=== PATIENT | female | born 1955 | race African-American/Black ===

== ENCOUNTER 2023-05-21 11:35 | Outpatient (CLI) | payer MEDICARE, BC, SELFPAY ==
[2023-05-21 13:26] LABS: Basophils Percent Auto 0.3 % (0.2-1.2); Eosinophils Absolute Auto 0.1 K/mm3 (0-0.3); Eosinophils Percent Auto 1.8 % (0-4.4); Hematocrit 38.5 % (37.0-47.0); Hemoglobin 11.7 g/dL (12.0-15.0); Lymphocytes Absolute Auto 2.41 K/mm3 (0.9-3.2); Lymphocytes Percent Auto 40.5 % (18.3-44.2); Mean Corpuscular HGB Conc 30.4 g/dl (32-36); Mean Corpuscular Volume 75.8 fl (80-100); Monocytes Absolute Auto 0.4 K/mm3 (0.1-0.6); Monocytes Percent Auto 5.9 % (2.6-8.5); Neutrophils Absolute Auto 3.1 K/mm3 (1.3-6.7); Neutrophils Percent Auto 51.5 % (45.5-73.1); Platelet Count Result 222 k/mm3 (150-375); Red Blood Count 5.08 M/mm3 (4.2-5.4); Red Cell Distribution Width 16.1 % (11.5-14.5)
[2023-05-21 13:36] LABS: Urine Cotinine NEGATIVE
== END 2023-05-21 11:36 | disposition home or self-care (01) ==
PROVIDERS: PCP Internal Medicine; Visit Provider Orthopaedic Surgery
DX: M17.12 Unilateral primary osteoarthritis, left knee (principal); Z01.818 Encounter for other preprocedural examination
CPT/HCPCS: 80307; 85025; 87081

== ENCOUNTER 2023-05-30 09:06 | Outpatient (CLI) | payer MEDICARE, BC, SELFPAY ==
--- NOTE | 2023-05-30 09:22 | ECG_ITS ---
Measurements Intervals [place] Rate: 36 P: 29 NV: 211 QRS: 2 QRSD: 87 T: 16 QT: 362 QTc: 282 Interpretive Statements SINUS BRADYCARDIA WITH FIRST DEGREE AV BLOCK POSSIBLE LEFT ATRIAL ENLARGEMENT [-0.1mV P WAVE IN V1/V2] LOW QRS VOLTAGE IN PRECORDIAL LEADS [QRS DEFLECTION < 1.0 mV IN CHEST LEADS] Poor R-wave progression WARNING: DATA QUALITY MAY AFFECT INTERPRETATION NO PREVIOUS ECG AVAILABLE FOR COMPARISON Electronically Signed On 05-30-2023 19:32:56 CDT by Marylu Dinh M.D.
== END 2023-05-30 09:07 | disposition home or self-care (01) ==
PROVIDERS: PCP Internal Medicine; Visit Provider Orthopaedic Surgery
DX: I10 Essential (primary) hypertension (principal); Z01.818 Encounter for other preprocedural examination; I44.0 Atrioventricular block, first degree
CPT/HCPCS: 93005

== ENCOUNTER 2023-06-04 01:42 | Day surgery (SDC) | payer MEDICARE, BC, SELFPAY ==
[2023-05-21 12:02] VITALS: BMI 30.4
--- NOTE | 2023-05-21 12:39 | PC.NURSE ---
Addendum entered by Marifer Castillo RN 05/21/23 12:45: TOTAL JOINT CLASS 05/30/23 AT 10 AM Original Note: Report to the Outpatient Waiting Room, entrance under the [place] [facility] located off [facility], at time 1000 on date _06/04/23 . Planned Procedure Time: __1200 . Time changes happen often and if your time is changed the preop area will call you the afternoon before. - You and your visitor will be asked to self-screen and do not enter if you have any COVID symptoms. - A mask is optional within the hospital at this time. Patients may have clear liquids (water, carbonated beverages, clear teas, apple juice) until 3 hours prior to surgery with a maximum of 20 ounces. - No food from midnight until time of surgery - Infants may have breast milk until 4 hours before surgery, infant formula 6 hours prior to surgery. - Children will be allowed to drink immediately following surgery. If applicable, please bring a bottle or sippy cup to assist with drinking. Juice, water, soda, and popsicles are readily available. For infants on formula, please bring formula the day of surgery. Pacifiers are allowed. Take the following medications with a SIP of water the morning of surgery: __AMLODIPINE DO NOT STOP ANY OF YOUR OTHER PRESCRIPTION MEDICATIONS PRIOR TO SURGERY ?EXCEPT THE FOLLOWING Medications to discontinue per physician ____ALL VITAMINS/SUPPLEMENTS 3 DAYS PRE OP.LAST DOSE 05/31/23___ASPIRIN PER DR REID Please no make-up, nail english, hairspray, perfume, deodorant, or body powder the day of surgery. No jewelry (including any body piercings) or valuables the day of surgery, leave them at home. Please take a shower or bath the night before, or the morning of, surgery with an antibacterial soap. Wear comfortable, loose fitting clothing. Children are encouraged to wear pajamas. - Jewelry must be removed prior to entering the operating room. Rings and piercings that are not removed may be cut off. - The hospital will not accept responsibility for valuables. - Please leave all valuables, including medications, at home the day of surgery. If you are going home after surgery, a licensed bus driver/monitor must drive you home. - NO public transportation without another adult if you receive anesthesia. - We recommend that an adult stay with you for 24 hours following discharge. - We also recommend that you do not drive, make important decision, drink alcoholic beverages, or take any drugs that were not prescribed by your health care provider for at least 24 hours after your discharge time. For Pediatric surgeries, we recommend two adults accompany the child home. Follow any additional instructions given to you from your surgeon. If you or anyone in your household have experienced Covid symptoms in the past week, please notify your surgeon or the nurse liaison at the phone number below for possible testing. VERBAL AND WRITTEN instructions given to _PATIENT and asked if any additional questions and then verbalized understanding. Patient advised to call surgeon office or pre surgery nurse liaison [phone] if any additional questions.
[2023-05-21 13:01] VITALS: BP 127/78; PULSE 62; RESP 18; TEMP 36.6; O2SAT 99
--- NOTE | 2023-06-01 13:57 | PM.IMHP ---
H&P: HPI History of Present Illness Date/Time: 06/01/23 13:57 Chief Complaint: The patient is a 68-year-old female who presents with left knee pain. The patient has advanced primary osteoarthritis left knee joint noted on x-ray and exam. She has rhnd-zp-lyuj changes despite conservative measures including cortisone hyaluronic acid therapy and anti-inflammatories her symptoms continue. She notes grinding crepitation aching pain worse with activity somewhat relieved by rest. She cannot stand or walk for long periods has trouble squatting kneeling going up and down stairs. Despite conservative measures symptoms continue. The patient at this point has discussed further treatment options in detail with Dr. Hancock she would now like to proceed with left total knee arthroplasty. Review of Systems Review of Systems: Ten point review of systems otherwise negative ON LICENSE OF [facility] Social History Social History Years smoked: 30 Smoking status: Former smoker Tobacco type: cigarettes Smoking end date: 10/29/02 Additional smoking assessment comments: DENIES ANY FORM OF TOBACCO USE Alcohol intake: current Alcohol use details: ONE DRINK PER MONTH Living arrangements: with family Spiritual care concerns: No Meds Home Medications and Allergies Home Medications Medication Instructions Recorded Confirmed Type acetaminophen 500 mg capsule 500 mg PO QID PRN Pain 05/21/23 05/21/23 History amlodipine 2.5 mg tablet 2.5 mg PO DAILY 05/21/23 05/21/23 History aspirin 81 mg tablet,delayed 81 mg PO DAILY 05/21/23 05/21/23 History release (Adult Low Dose Aspirin) atorvastatin 20 mg tablet 20 mg PO HS 05/21/23 05/21/23 History calcium carbonate 600 mg-vitamin 1 cap PO DAILY 05/21/23 05/21/23 History D3 5 mcg (200 unit) capsule (Calcium 600 + D(3)) clobetasol 0.05 % topical cream 0.05 applic topical PRN PRN Dry 05/21/23 05/21/23 History Skin fluticasone propionate 50 1 spray intranasal PRN PRN 05/21/23 05/21/23 History mcg/actuation nasal Congestion spray,suspension glucosamine sulf dipot 1 cap PO DAILY 05/21/23 05/21/23 History chlr,msm,chond 550 mg-C 30 mg-cris 1 mg capsule (Glucosamine Chondroitin) lisinopril 20 mg tablet 20 mg PO DAILY 05/21/23 05/21/23 History metformin 500 mg tablet 500 mg PO BID 05/21/23 05/21/23 History multivitamin 1 tablet PO DAILY 05/21/23 05/21/23 History nystatin 100,000 unit/gram topical 100,000 unit topical BID 05/21/23 05/21/23 History cream omega-3 fatty acids 1,000 mg PO DAILY 05/21/23 05/21/23 History vitamins A,C,G-ufxc-pqixcb 2,148 1 tablet PO DAILY 05/21/23 05/21/23 History mcg-113 mg-45 mg-17.4 mg tablet (PreserVision AREDS) zinc 50 mg tablet 50 mg PO DAILY 05/21/23 05/21/23 History Allergies Allergy/AdvReac Type Severity Reaction Status Date / Time No Known Allergies Allergy Verified 05/21/23 12:06 Exam Narrative: on exam the patient is noted be well-developed well-nourished female no acute distress alert oriented x3. Normal mood and affect. 5 ft 4 in tall 180 lb with BMI 30.9. Hearing and vision are intact. Respiratory is good no distress. Pulse regular rate and rhythm. Abdomen benign. Extremities show the patient's left knee to be painful with manipulation and range of motion. The patient has motion from about 3-110 degrees with mild varus deformity tenderness on the medial joint line crepitation through the arc of motion. No significant effusion or swelling is noted no erythema heat or other signs of infection. Neurovascularly she is intact skin is intact strength is 5 5. Central nervous system within normal limits. Walks an antalgic gait because of bilateral knee issues. Assessment and Plan Assessment and plan (1) Primary osteoarthritis of left knee: Code(s): M17.12 - Unilateral primary osteoarthritis, left knee Status: Acute Plan by x-ray and exam t
[2023-06-04] VITALS (10 sets, daily range): BP systolic 136–151; BP diastolic 59–75; PULSE 65–85; RESP 12–21; TEMP 36.6–36.8; O2SAT 97–100
--- NOTE | ~2023-06-04 | XR_ITS ---
EXAMINATION: [id number] DATE: 06/04/2023 15:44 INDICATION: Postoperative evaluation following left total knee arthroplasty. TECHNIQUE: Anteroposterior and lateral views of the left knee were obtained. COMPARISON: None. FINDINGS: Left total knee arthroplasty with patellar resurfacing appears well seated and in near anatomic align ment. No fractures identified. Anterior skin juan and expected postoperative subcutaneous and int ra-articular gas. IMPRESSION: 1. Left total knee arthroplasty, negative for postoperative purposes. Reviewed, dictated and finalized at location B.
[2023-06-04] MEDS: ACETAMINOPHEN 500 MG TABLET 1000 MG PO (10:33)
[2023-06-04] MEDS: VANCOMYCIN 1,250 MG/NS 250 ML 1,250 MG/250 ML BAG 166.67 MG IVPB (10:50)
[2023-06-04] MEDS: LACTATED RINGERS 1,000 ML 30 ML IV CONT ×2 (10:50→15:35)
[2023-06-04 11:05] LABS: Glucose Point of Care 92 mg/dl (65-105)
[2023-06-04] MEDS: TRANEXAMIC ACID 1,000MG/ISO100 1,000 MG/100 ML BAG 200 MG IVPB (11:33)
--- NOTE | 2023-06-04 11:53 | WPDHPUPDATE1 ---
History and Physical Update Update Date/Time: 06/04/23 11:53 History and Physical has been reviewed, including an updated exam of the patient. There are NO changes in the patient's condition. Risks, benefits, and alternatives have been discussed and questions answered. Patient agrees to proceed with procedure.
--- NOTE | 2023-06-04 13:00 | WPDANESEPPF ---
Anes - Initial Pre Proc Eval Procedure: Operation Date: 06/04/23 12:00 Proposed Procedures p Left Total Knee Arthroplasty - Johny Hancock MD Date/Time: 06/04/23 13:00 Surgeon: Johny Hancock MD Pre Op Diagnosis: oa left knee Patient Data Age: 68 Gender: F Height: 1.63 m Weight: 80.5 kg Last Vital Signs Temp 97.9 F 06/04/23 10:37 Pulse 65 06/04/23 10:37 Resp 16 06/04/23 10:37 BP 150/75 H 06/04/23 10:37 Pulse Ox 100 06/04/23 10:37 O2 Del Method Room Air 05/21/23 13:01 Allergies Allergy/AdvReac Type Severity Reaction Status Date / Time No Known Allergies Allergy Verified 05/21/23 12:06 Home Medications Medication Instructions Recorded Confirmed Type acetaminophen 500 mg capsule 500 mg PO QID PRN Pain 05/21/23 06/04/23 History amlodipine 2.5 mg tablet 2.5 mg PO DAILY 05/21/23 06/04/23 History aspirin 81 mg tablet,delayed 81 mg PO DAILY 05/21/23 06/04/23 History release (Adult Low Dose Aspirin) atorvastatin 20 mg tablet 20 mg PO HS 05/21/23 06/04/23 History calcium carbonate 600 mg-vitamin 1 cap PO DAILY 05/21/23 06/04/23 History D3 5 mcg (200 unit) capsule (Calcium 600 + D(3)) clobetasol 0.05 % topical cream 0.05 applic topical PRN PRN Dry 05/21/23 06/04/23 History Skin fluticasone propionate 50 1 spray intranasal PRN PRN 05/21/23 06/04/23 History mcg/actuation nasal Congestion spray,suspension glucosamine sulf dipot 1 cap PO DAILY 05/21/23 06/04/23 History chlr,msm,chond 550 mg-C 30 mg-cris 1 mg capsule (Glucosamine Chondroitin) lisinopril 20 mg tablet 20 mg PO DAILY 05/21/23 06/04/23 History metformin 500 mg tablet 500 mg PO BID 05/21/23 06/04/23 History multivitamin 1 tablet PO DAILY 05/21/23 06/04/23 History nystatin 100,000 unit/gram topical 100,000 unit topical BID 05/21/23 06/04/23 History cream omega-3 fatty acids 1,000 mg PO DAILY 05/21/23 06/04/23 History vitamins A,C,E-rdii-bgjtfi 2,148 1 tablet PO DAILY 05/21/23 06/04/23 History mcg-113 mg-45 mg-17.4 mg tablet (PreserVision AREDS) zinc 50 mg tablet 50 mg PO DAILY 05/21/23 06/04/23 History Laboratory Tests 06/04/23 06/04/23 10:58 11:03 POC Capillary Glucose 92 mg/dl (65-105) Blood Type O Positive Antibody Screen Negative Patient hx anesthesia problems: post op nausea/vomiting Family hx anesthesia problems: none Results Review: All pre-operative results and documents have been reviewed as part of the pre-operative evaluation. [facility] Social History Social History Years smoked: 30 Smoking status: Former smoker Tobacco type: cigarettes Smoking end date: 10/29/02 Additional smoking assessment comments: DENIES ANY FORM OF TOBACCO USE Alcohol intake: current Alcohol use details: ONE DRINK PER MONTH Living arrangements: with family Spiritual care concerns: No Anes - Eval Final PreProcedure Day of Procedure 06/04/23 13:00 Patient weight: obese Heart: regular rate and rhythm Lungs: clear to auscultation Airway: Mallampati scale class II Neurological: alert and oriented Last oral intake: >/= 8 hours ASA classification: III Emergent: no Anesthetic plan: proceed Anesthesia type and monitoring: general LMA and standard monitoring Results Review: All pre-operative results and documents have been reviewed as part of the pre-operative evaluation. Informed Consent: The patient's anesthetic plan and its attendant risks and benefits were discussed with the patient/family/POA. Questions were solicited and answers provided to the satisfaction of the patient/family/POA.
[2023-06-04] MEDS: SCOPOLAMINE 1.5 MG PATCH TRANSDERM (13:07)
[2023-06-04] MEDS: ceFAZolin 2 GM/D5W 50 ML 2 GM/50 ML BAG IVPB (13:33)
[2023-06-04] MEDS: GENTAMICIN BONE CEMENT REFOBACIN 1 EACH TOPICAL (14:52)
--- NOTE | 2023-06-04 15:00 | W.PM.PROC2 ---
Procedure Note - Detailed Date of Procedure 06/04/23 Pre-op Diagnosis Osteoarthritis left knee Post-op Diagnosis Same Procedure Performed LEFT total knee arthroplasty Surgeon Johny Hancock MD Director Of Manufacturing Operations Ermias Raines Anesthesia General Description of Procedure The patient was brought to the operating room. General anesthetic was administered. Placed on the operating table and sterilely prepped and draped in usual manner. A longitudinal incision was made. Tourniquet inflated to 300 mmHg for a total of 52 minutes. Dissection carried down to the fascia. Medial parapatellar incision was made and the patella subluxated laterally. Patella cut from 25 to 15 mm and sized for a 34 mm button. The tibia cut perpendicular to the long axis and femur cut in 5 degrees of valgus, a [65] femur trialed. This was too large and the femusr rectu to 62.5 mm[67] tibia was felt to fit the best. The soft tissue balanced, hemostasis obtained. All [address], [67] tibia, 62.5 femur, 34 mm patella, and 10 mm poly. Motion was 0-125 degrees with good stablility in both flexion and extension. The wound was closed with #2 vicryl, 2-0 Vicryl and juan. Implants [employer] Estimated Blood Loss 200 Drains No Packing No Pathology None sent Complications No immediate complications Condition Stable Disposition PACU
[2023-06-04] MEDS: fentaNYL CITRATE INJ (*CRX) 100 MCG/2 ML VIAL 25 MCG IV PUSH ×8 (15:45→16:35)
[2023-06-04 15:46] LABS: Glucose Point of Care 107 mg/dl (65-105)
--- NOTE | 2023-06-04 15:46 | PM.OP ---
Procedure Note - Brief Procedure Note - Brief Date of procedure: 06/04/23 Preop diagnosis severe primary osteoarthritis left knee Postop diagnosis severe primary osteoarthritis left knee status post left total knee arthroplasty Procedure performed: Left total knee arthroplasty Surgeon: Surgeon Johny Hancock MD 1st esol teacher assistant Ermias Raines PA-C Description of procedure: Patient was taken the operating room June 04, 2023. I entered the room at 1:35 p.m.. At that point I assisted with transfer the patient onto the operating table and placement of a well-padded tourniquet on the upper thigh once anesthesia was instituted. I then assisted with a sterile prep and drape of the left lower extremity. Dr. Hancock entered room and commenced with the left total knee arthroplasty throughout the procedure I assisted with positioning of the leg, wound retraction, hemostasis with suction cautery, placement of the total knee implant and excess cement removal once the cement was hardened. Once Dr. Hancock completed his portion of the procedure I then irrigated the wound thoroughly from deep to superficial, also cauterized any remaining bleeders once the tourniquet was down. Then placed Surgicel powder throughout the wound and started with closure of the deep capsule of the left knee joint using 2. Vicryl and 2. Quill. I irrigated the wound once again placed more Surgicel powder and made sure final hemostasis was obtained with cauterization I then closed the skin layer with 2-0 Vicryl, 0 Quill and surgical skin juan. I then placed a sterile dressing with Xeroform gauze, 4 x 4 gauze, soft roll gauze, a long Davey wrap from the toes to the thigh as well. Patient tolerated the procedure well without intraoperative complications was stable for discharge to recovery room in good condition. Total blood loss was approximately 200 cc. The patient was expected to spend the night for observation and pain control and be discharged tomorrow if in good condition. I exited the room at 3:35 p.m..
--- NOTE | 2023-06-04 17:03 | ADMGEN ---
This patient, Nova Trinidad, was admitted to Medical Room 251-01. Patient/family oriented to hospital policies and general routines including ID bracelet, bed and alarms, visiting hours, pain management, procedures, bathroom and other care routines, personal items, smoking policy, room service/diet, and visiting hours. Information on how to activate the Rapid Response Team has been discussed. Patient/Family are encouraged to report perceived risks to care and to ask questions if they do not understand what they are told or what they should do.
[2023-06-04] MEDS: HYDROcodone/acetaminophen (*CRX) 7.5-325 MG TABLET 1 TAB PO ×2 (17:38→23:20)
--- NOTE | 2023-06-04 19:33 | PM.IMCN ---
Assessment and Plan Assessment and plan (1) S/P total knee arthroplasty: Code(s): Z96.659 - Presence of unspecified artificial knee joint Status: Acute Assessment and Plan: Postop care per Ortho. DVT prophylaxis per Ortho. PT OT per ortho. The patient is on a daily aspirin and Xarelto. Pain management per Ortho. (2) Hyperlipidemia: Code(s): E78.5 - Hyperlipidemia, unspecified Status: Acute Assessment and Plan: Resume atorvastatin (3) Obesity: Code(s): E66.9 - Obesity, unspecified Status: Acute Assessment and Plan: The patient stated that she is not diabetic and she was given metformin to lose weight. I would check her A1c anyway. (4) Hypertension: Code(s): I10 - Essential (primary) hypertension Status: Acute Assessment and Plan: Her amlodipine was resumed as well as her lisinopril. Please watch her renal function. Plan I thank you for allowing us to consult on this patient. We will continue to comanage the patient along side you. If you have any questions or concerns please feel free [facility]. HPI Data of Consult Consult date: 06/04/23 Requesting Physician: Johny Hancock MD Primary Care Provider: Chance AyalaMD Consult Narrative Narrative: Nova Trinidad is a 68 year old female who has been complaining of left knee pain she had advanced primary osteoarthritis to left joint on x-ray and exam. ( The patient previously had her right knee replaced at an outside facility of which still continues to cause her some pain.) Her left knee is bone on bone changes despite conservative measures. She has had cortisone injections and has taken anti-inflammatories. She notes grinding and crepitation and that her left knee a achy pain was worse. It was somewhat relieved with rest. Despite conservative measures her symptoms for main. The patient underwent a left total knee arthroplasty today. The patient has stated that she thought she had a nerve block however the patient is complaining of pain that is a 7 or 8 at this time. She stated it had been several hours since she had pain medication. She has no numbness or tingling to her left leg at all. Patient has full movement of her toes and her foot without any numbness. See operative note for left total knee arthroplasty per Dr. Hancock from today. Estimated blood loss 200. No immediate complications were noted according to the surgical notes. The hospitalist group was consulted for medical management on the date of service of 06/04/2023. Review of Systems Review of Systems: All systems reviewed & are unremarkable except as noted in HPI and below Constitutional: Constitutional: Reports as per HPI and Reports no additional constitutional complaints Eyes: Eyes: Reports as per HPI and Reports no additional eye complaints ENT: Reports system reviewed and no additional complaints, except as documented and Reports Normal hearing present Cardiovascular: Cardiovascular: Reports no additional cardiovascular complaints Respiratory: Respiratory: Reports no additional respiratory complaints and Reports no additional respiratory complaints Gastrointestinal: Gastrointestinal: Reports as per HPI and Reports no additional gastrointestinal complaints Musculoskeletal: Musculoskeletal: Reports no additional musculoskeletal complaints Integumentary/Breasts: Skin/Breast: Reports system reviewed and no additional complaints, except as docu and Reports as per HPI Neurologic: Reports system reviewed and no additional complaints, except as documented, Reports as per HPI and Reports Normal hearing present Psychiatric: Psychiatric: Reports no additional psychiatric complaints and Reports as per HPI Endocrine: Endocrine: Reports no additional endocrine complaints Hematologic/Lymphatic: Hematologic/Lymphatic: Reports no additional hemato
[2023-06-04] MEDS: ceFAZolin 1 GM/NS 50 ML 1 GM/50 ML BAG IVPB (20:10)
[2023-06-04] MEDS: ATORVASTATIN 20 MG TABLET PO (20:10)
[2023-06-04] MEDS: traMADol HCL (*CRX) 50 MG TABLET PO (20:10)
[2023-06-04] MEDS: FAMOTIDINE 20 MG TABLET PO (20:10)
[2023-06-04] MEDS: RIVAROXABAN 10 MG TABLET PO (20:11)
[2023-06-05] MEDS: traMADol HCL (*CRX) 50 MG TABLET PO ×2 (02:15→09:02)
[2023-06-05 03:00] VITALS: PULSE 71; RESP 20; O2SAT 98
[2023-06-05 03:12] VITALS: BP 139/68; PULSE 71; RESP 20; TEMP 36.6; O2SAT 98
[2023-06-05] MEDS: ceFAZolin 1 GM/NS 50 ML 1 GM/50 ML BAG IVPB (04:49)
[2023-06-05] MEDS: HYDROcodone/acetaminophen (*CRX) 7.5-325 MG TABLET 1 TAB PO (05:22)
[2023-06-05 05:46] LABS: Basophils Percent Auto 0.2 % (0.2-1.2); Eosinophils Percent Auto 0.1 % (0-4.4); Hematocrit 31.6 % (37.0-47.0); Hemoglobin 9.7 g/dL (12.0-15.0); Immature Granulocyte Absolute 0.04 K/mm3 (0.00-0.031); Immature Granulocyte Percent A 0.4 % (0-0.5); Lymphocytes Absolute Auto 1.33 K/mm3 (0.9-3.2); Lymphocytes Percent Auto 14.1 % (18.3-44.2); Mean Corpuscular HGB Conc 30.7 g/dl (32-36); Mean Corpuscular Hemoglobin 23.2 pg (26-34); Mean Corpuscular Volume 75.4 fl (80-100); Mean Platelet Volume 10.4 fl (7.4-10.4); Monocytes Absolute Auto 0.5 K/mm3 (0.1-0.6); Monocytes Percent Auto 5.3 % (2.6-8.5); Neutrophils Absolute Auto 7.5 K/mm3 (1.3-6.7); Neutrophils Percent Auto 79.9 % (45.5-73.1); Platelet Count Result 173 k/mm3 (150-375); Red Blood Count 4.19 M/mm3 (4.2-5.4); Red Cell Distribution Width 15.6 % (11.5-14.5); White Blood Count 9.4 K/mm3 (4.5-10.0)
[2023-06-05 05:58] LABS: Anion Gap 7 mmol/L (8-16); Blood Urea Nitrogen 12 mg/dL (7-17); Calcium 8.6 mg/dL (8.4-10.2); Carbon Dioxide 27 mmol/L (22-30); Chloride 98 mmol/L (98-107); Estimated CRCL calculation 76 ml/min; Estimated Glomerular Filt Rate > 60; Glucose 141 mg/dL (65-110); Sodium 132 mmol/L (137-145)
[2023-06-05 06:05] LABS: Hemoglobin A1C 6.2 % (<5.7)
[2023-06-05 07:35] VITALS: BP 138/60; PULSE 66; RESP 20; TEMP 36.7; O2SAT 98
[2023-06-05 09:00] VITALS: BP 125/67; PULSE 69; O2SAT 100
[2023-06-05] MEDS: lisinopriL 20 MG TABLET PO (09:01)
[2023-06-05] MEDS: ASPIRIN 81 MG ENTERIC TABLET PO (09:02)
[2023-06-05] MEDS: CELECOXIB 200 MG CAPSULE PO (09:03)
[2023-06-05] MEDS: FAMOTIDINE 20 MG TABLET PO (09:03)
[2023-06-05] MEDS: SENNA/DOCUSATE SODIUM TABLET 2 TAB PO (09:03)
[2023-06-05] MEDS: metFORMIN HCL 500 MG TABLET PO (09:03)
[2023-06-05] MEDS: amLODIPine BESYLATE 2.5 MG TABLET PO (09:04)
[2023-06-05] MEDS: polyethylene glycoL 3350 17 GM POWD.PACK PO (09:05)
--- NOTE | 2023-06-05 09:10 | WPDANESPN ---
Anes - Prog Note Post-Op Date/Time: 06/05/23 09:10 Cardiovascular status: normal Respiratory status: normal Airway patency: baseline Mental status: baseline Post-Op hydration status: normal Vital Signs: Last Vital Signs Temp 36.7 C 06/05/23 07:35 Pulse 69 06/05/23 09:00 Resp 20 06/05/23 07:35 BP 125/67 06/05/23 09:00 Pulse Ox 100 06/05/23 09:00 O2 Del Method Room Air 06/05/23 03:00 O2 Flow Rate 2 06/04/23 16:35 Pain Score (VAS): 0 I/O: Intake & Output 06/04/23 06/05/23 06/05/23 23:59 07:59 15:59 Intake Total 1050 50 Output Total 750 300 Balance 300 -250 Laboratory Tests 06/05/23 05:35 06/05/23 05:35 06/04/23 06/04/23 06/04/23 10:58 11:03 15:45 WBC RBC Hgb Hct MCV MCH MCHC RDW Plt Count MPV Immature Gran % (Auto) Neut % (Auto) Lymph % (Auto) [place] % (Auto) Eos % (Auto) Baso % (Auto) Lymph # (Auto) [place] # (Auto) Eos # (Auto) Baso # (Auto) Abs Immat Gran (auto) Absolute Neuts (auto) Absolute Nucleated RBC Nucleated RBC % Sodium Potassium Chloride Carbon Dioxide Anion Gap BUN Creatinine Estim Creat Clear Calc Estimated GFR Glucose POC Capillary Glucose 92 107 H Hemoglobin A1c Calcium Blood Type O Positive Antibody Screen Negative 06/05/23 05:35 WBC 9.4 RBC 4.19 L Hgb 9.7 L Hct 31.6 L MCV 75.4 L MCH 23.2 L MCHC 30.7 L RDW 15.6 H Plt Count 173 MPV 10.4 Immature Gran % (Auto) 0.4 Neut % (Auto) 79.9 H Lymph % (Auto) 14.1 L [place] % (Auto) 5.3 Eos % (Auto) 0.1 Baso % (Auto) 0.2 Lymph # (Auto) 1.33 [place] # (Auto) 0.5 Eos # (Auto) 0.0 Baso # (Auto) 0.0 Abs Immat Gran (auto) 0.04 H Absolute Neuts (auto) 7.5 H Absolute Nucleated RBC 0.0 Nucleated RBC % 0.0 Sodium 132 L Potassium 4.0 Chloride 98 Carbon Dioxide 27 Anion Gap 7 L BUN 12 Creatinine 0.60 L Estim Creat Clear Calc 76 Estimated GFR > 60 Glucose 141 H POC Capillary Glucose Hemoglobin A1c 6.2 H Calcium 8.6 Blood Type Antibody Screen Post-procedural complaints: none Patient Feedback: Patient satisfied with anesthetic care.
[2023-06-05 11:05] VITALS: BP 113/57; PULSE 60; RESP 14; TEMP 36.6; O2SAT 99
--- NOTE | 2023-06-05 11:13 | PM.DS ---
DS: Admitting Diagnosis Discharge Date June 05, 2023 Admitting Diagnosis Admitting diagnosis- advanced primary osteoarthritis left knee joint Discharge diagnosis- same, status post left arthroplasty DS: Summary Hospital Course Hospital Course: Patient was admitted overnight June 04, 2023 status post left total arthroplasty. Postop day 1 the patient doing well some pain control issues noted the patient medications were adjusted she otherwise was doing well in physical therapy. She was ambulating independently vital signs are stable she is afebrile neurovascular she is intact wound is clean and dry calves are benign. She is alert oriented x3. Normal mood and affect. Tolerating p.o. well. She was deemed stable for discharge to home with the following discharge instructions. Outpatient physical therapy was to be started this week for total knee protocol. The patient would keep the wound clean and dry change dressing daily if necessary watch for evidence of drainage or infection. She will follow-up at 2 weeks postop for staple removal and wound recheck. She is to be discharged with Delta 7.5 mg every 6 hours p.r.n. severe pain and Xarelto 10 mg daily for total postop course of 2 weeks when this is complete she will go to aspirin 325 mg b.i.d. x1 month. If her insurance will not cover Xarelto we will do aspirin 325 mg b.i.d. x1 month. She voiced understanding. The patient will be weight-bearing as tolerated left lower extremity with a walker. The patient is instructed to call the office immediately at [phone] for any problems difficulties or questions. She will resume her home medications. General diet as tolerated. Discharged home in stable condition. the patient voiced understanding and agrees with above plan. Time Spent with Patient Time attestation: Total time spent providing and/or coordinating discharge services: Exam Narrative: Vital signs stable afebrile neurovascularly intact wound clean and dry calves benign. Alert oriented x3. Normal mood and affect. Tolerating p.o. well. Tolerating physical therapy well. Ambulated independently with a walker in physical therapy today. DS: Data Data Completed and Pending Labs on day of discharge: Labs from last 24 hours 06/05/23 06/04/23 06/04/23 05:35 15:45 10:58 WBC 9.4 RBC 4.19 L Hgb 9.7 L Hct 31.6 L MCV 75.4 L MCH 23.2 L MCHC 30.7 L RDW 15.6 H Plt Count 173 MPV 10.4 Immature Gran % (Auto) 0.4 Neut % (Auto) 79.9 H Lymph % (Auto) 14.1 L [place] % (Auto) 5.3 Eos % (Auto) 0.1 Baso % (Auto) 0.2 Lymph # (Auto) 1.33 [place] # (Auto) 0.5 Eos # (Auto) 0.0 Baso # (Auto) 0.0 Abs Immat Gran (auto) 0.04 H Absolute Neuts (auto) 7.5 H Absolute Nucleated RBC 0.0 Nucleated RBC % 0.0 Sodium 132 L Potassium 4.0 Chloride 98 Carbon Dioxide 27 Anion Gap 7 L BUN 12 Creatinine 0.60 L Estim Creat Clear Calc 76 Estimated GFR > 60 Glucose 141 H POC Capillary Glucose 107 H Hemoglobin A1c 6.2 H Calcium 8.6 Blood Type O Positive Antibody Screen Negative Procedures/Treatments: Left total knee arthroplasty Discharge Plan Discharge Patient Disposition: Home, Self-Care Discharge Instructions: Johny Hancock M.D [facility], [place] [phone] POST-OPERATIVE DISCHARGE INSTRUCTIONS TOTAL KNEE ARTHROPLASTY 1. When resting, lie on back with leg elevated above hear to minimize swelling. Significant swelling could indicate a blood clot and if this occurs call the office (or go to the ER) to have a venous ultrasound. 2. Do exercise 5 times a day. 3. Do not sit with leg down except for meals. 4. Wound Care: Nursing will give additional dressings at discharge. Patient to change dressing at home 1 week from surgery, then maintain until seen in office. 5. May shower with dressi
--- NOTE | 2023-06-05 12:20 | PM.IMPN ---
Progress Note: A&P Assessment and Plan (1) S/P total knee arthroplasty: Code(s): Z96.659 - Presence of unspecified artificial knee joint Status: Acute Assessment and Plan: Postop Day 1 care per Ortho. DVT prophylaxis per Ortho. PT OT per ortho. The patient is on a daily aspirin and Xarelto. Pain management per Ortho. (2) Hyperlipidemia: Code(s): E78.5 - Hyperlipidemia, unspecified Status: Acute Assessment and Plan: Resume atorvastatin (3) Obesity: Code(s): E66.9 - Obesity, unspecified Status: Acute Assessment and Plan: The patient stated that she is not diabetic and she was given metformin to lose weight. I would check her A1c anyway. (4) Hypertension: Code(s): I10 - Essential (primary) hypertension Status: Acute Assessment and Plan: Her amlodipine was resumed as well as her lisinopril. Please watch her renal function. Plan I thank you for allowing us to consult on this patient. We will continue to comanage the patient along side you. If you have any questions or concerns please feel free to reach out to the [facility] hospitalist assign to the patient for the day. Subjective Date/time seen: 06/05/23 12:20 Interval history: Patient doing well today. She has had difficulty controlling her pain and nursing staff have contacted Orthopedics due to this. Other than her left knee pain she has no other complaints. From a hospitalist standpoint patient can be discharged. Exam Narrative: GENERAL: Comfortable, no acute distress HENMT: moist mucous membranes EYES: EOM intact b/l NECK: no lymphadenopathy RESPIRATORY: clear to auscultation CARDIO: RRR GI: soft, nontender, bowel sounds present SKIN: no rashes EXTREMITIES: Left knee Tegaderm dry and intact with minimal bruising and swelling Objective Data Vital Signs Vital Signs: Vital Signs - 24 hr 06/04/23 15:35 06/04/23 15:50 06/04/23 16:05 Temperature 97.8 F Pulse Rate 78 74 73 Respiratory Rate 14 16 12 Blood Pressure 136/67 136/72 143/71 H Pulse Oximetry 100 100 100 Oxygen Delivery Simple Face Mask Simple Face Mask Simple Face Mask Oxygen Flow Rate 8 8 8 06/04/23 16:20 06/04/23 16:35 06/04/23 17:00 Temperature 97.8 F Pulse Rate 69 70 67 Respiratory Rate 12 12 18 Blood Pressure 142/75 H 141/68 H 140/72 Pulse Oximetry 100 100 100 Oxygen Delivery Nasal Cannula Nasal Cannula Oxygen Flow Rate 2 2 06/04/23 17:15 06/04/23 18:45 06/04/23 23:22 Temperature 97.8 F 98.2 F 98.3 F Pulse Rate 67 85 72 Respiratory Rate 15 12 21 H Blood Pressure 145/59 H 151/70 H 145/68 H Pulse Oximetry 100 97 100 Oxygen Delivery Oxygen Flow Rate 06/05/23 03:12 06/05/23 03:00 06/05/23 07:35 Temperature 97.8 F 98.1 F Pulse Rate 71 71 66 Respiratory Rate 20 20 20 Blood Pressure 139/68 138/60 Pulse Oximetry 98 98 98 Oxygen Delivery Room Air Oxygen Flow Rate 06/05/23 09:00 06/05/23 09:00 06/05/23 11:05 Temperature 98 F Pulse Rate 69 60 Respiratory Rate 14 Blood Pressure 125/67 113/57 L Pulse Oximetry 100 99 Oxygen Delivery Room Air Oxygen Flow Rate Intake/Output Intake/Output: Intake & Output 06/02/23 06/03/23 06/04/23 06/05/23 23:59 23:59 23:59 23:59 Intake Total 1450 170 Output Total 750 300 Balance 700 -130 Meds/Results Medications: Active Medications Generic Name Dose Route Start Last Admin Trade Name Freq PRN Reason Stop Dose Admin Hydrocodone Bitart/Acetaminophen 1 tab 06/04/23 15:04 06/05/23 05:22 Hydrocodone/Acetaminophen (*Crx) 7.5-325 Mg Tablet PO 1 tab Q6H PRN Administration Pain Rated 7-10 Hydrocodone Bitart/Acetaminophen 1 tab 06/04/23 15:04 Hydrocodone/Acetaminophen (*Crx) 5-325 Mg Tablet PO Q4H PRN Pain Rated 4-6 Amlodipine Besylate 2.5 mg 06/05/23 09:00 06/05/23 09:04 Amlodipine Besylate 2.5 Mg Tablet PO 2.5 mg DAILY POLY Administration Aspirin 81 mg
[2023-06-05] MEDS: CYCLOBENZAPRINE HCL 10 MG TABLET PO (13:11)
[2023-06-05] MEDS: HYDROcodone/acetaminophen (*CRX) 5-325 MG TABLET 1 TAB PO (14:49)
[2023-06-05] MEDS: CEPHALEXIN 500 MG CAPSULE PO (15:58)
== END 2023-06-05 16:23 | disposition home health service (06) ==
LOC: ANHSURGERY 10:12 → ANH2MED 16:56
PROVIDERS: Nurse Practitioner; PCP Internal Medicine; Visit Provider Orthopaedic Surgery
PROC: (CPT 27447; principal; 2023-06-04 12:00)
DX: M17.12 Unilateral primary osteoarthritis, left knee (principal); E78.5 Hyperlipidemia, unspecified; I10 Essential (primary) hypertension; Z79.84 Long term (current) use of oral hypoglycemic drugs; Z79.82 Long term (current) use of aspirin; Z87.891 Personal history of nicotine dependence; E66.9 Obesity, unspecified; Z68.30 Body mass index [BMI] 30.0-30.9, adult
CPT/HCPCS: 27447; 36415; 73560; 80048; 82948; 83036; 85025; 86850; 86900; 86901; 97110; 97116; 97161; 97165; 97530; 97535; A9270; C1713; C1776; J0171; J0690; J1100; J1170; J1885; J2250; J2270; J2405; J2704; J2795; J3010; J3370; J7120